=== PATIENT | male | born 1950 | race African-American/Black ===

== ENCOUNTER → 2018-07-15 | Outpatient (CLI) | payer OTHER, MEDICARE ==
[2016-03-24 16:08] VITALS: BP 125/95
[~2018-07-15] MED LIST: LISI10TA2 PO
--- NOTE | 2018-07-15 11:41 | RAD ---
Left lower extremity arterial duplex ultrasound study without comparison for preop, history of smoking, left toe tingling. TECHNIQUE AND FINDINGS: Real-time grayscale and color and spectral Doppler evaluation of the arteries of the left lower extremity is performed. The left common femoral artery is patent and triphasic. There is a significant velocity dropped from 125 cm/s to 78 cm/s within the proximal SFA, suggesting a significant proximal SFA stenosis. There is markedly elevated velocity focally within the distal SFA to 193 cm/s, corresponding to significant grayscale narrowing of this vessel. Velocities and waveforms are normal throughout the popliteal, posterior tibial, peroneal, and dorsalis pedis arteries. Waveforms are triphasic throughout. IMPRESSION: 1. Clinically significant atherosclerotic stenosis of the distal SFA, likely with significant tandem stenosis of the proximal SFA as well. Electronically signed by: Orestes Gutierrez MD (07/15/2018 11:37 AM) [id number]
== END | disposition home or self-care (01) ==
LOC: US 06:42
PROVIDERS: ATTEND Podiatrist
DX: Z01.818 Encounter for other preprocedural examination (principal); I70.293 Other atherosclerosis of native arteries of extremities, bilateral legs; F17.200 Nicotine dependence, unspecified, uncomplicated
CPT/HCPCS: 93926